=== PATIENT | male | born 1945 | race Caucasian/White ===

== ENCOUNTER 2017-09-09 17:51 | Emergency (ER) | payer MEDICARE, OTHER ==
[~2017-09-09] VITALS: Ht 185.4 cm; Wt 99.8 kg
[2017-09-09] MEDS ORDERED: ACETAMINOPHEN 325 MG TAB PO ONE (18:45)
[2017-09-09 19:05] LABS: Basophils # (auto) 0 uL; Basophils % (auto) 0.4 % (0.0-2.0); Eosinophils # (auto) 0 uL; Eosinophils % (auto) 0.1 % (0.0-7.0); Hemoglobin 15.4 g/dL (13.5-17.5); Lymphocytes # (auto) 0.3 uL; Lymphocytes % (auto) 4.8 % (10.0-50.0); Mean Corpuscular Hemoglobin 33.9 pg (28.0-32.0); Mean Corpuscular Volume 96.7 fL (80.0-100.0); Mean Platelet Volume 8.2 fL (6.9-10.8); Monocytes # (auto) 0.6 uL; Monocytes % (auto) 8.7 % (0.0-12.0); Neutrophils # (auto) 5.6 uL; Platelet Count (auto) 136 10^3/uL (140-450); Red Cell Distribution Width 13.7 % (11.8-14.3); White Blood Cell 6.5 10^3/uL (4.4-10.8)
[2017-09-09 19:19] LABS: Albumin 3.9 g/dL (3.4-5.0); BUN/Creatinine Ratio 13.8; Calcium 8.1 mg/dL (8.5-10.1)
[2017-09-09 19:22] LABS: Bilirubin, Total 0.6 mg/dL (0.2-1.0); Total Protein 7.3 g/dL (6.4-8.2)
[2017-09-10] MEDS ORDERED: SODIUM CHLORIDE 0.9% 500 ML IV ONE (08:26)
[2017-09-10] MEDS ORDERED: traMADol HCL 50 MG TAB PO ONE (10:15)
[2017-09-10] MEDS ORDERED: THROAT LOZENGES(CEPASTAT) MT ONE (10:15)
[2017-09-10 11:17] LABS: Urine Bilirubin Negative (Negative); Urine Blood Negative /uL (Negative); Urine Color Yellow (Yellow); Urine Glucose Normal (Normal); Urine Ketone 1+ (Negative); Urine Mucus FEW (None Seen); Urine Nitrite Negative (Negative); Urine RBC <1 /hpf (0 - 3); Urine Squamous Epithelial Cell FEW /hpf (<5); Urine Urobilinogen Normal (Negative); Urine pH 5.5 (5.0-8.0)
[2017-09-10 12:16] VITALS: BP 148/63
== END 2017-09-10 12:18 | disposition home or self-care (01) ==
LOC: ER 17:51
DX: J20.9 Acute bronchitis, unspecified (principal)
CPT/HCPCS: 36415; 71010; 80053; 81001; 85025; 94761; 96360; 96361; 99285; J7040; 93005

== ENCOUNTER 2019-07-13 07:55 | Emergency (ER) | payer MEDICARE ==
[~2019-07-13] VITALS: Ht 185.4 cm; Wt 79.4 kg
[~2019-07-13 07:55] MED LIST: CHOL100046 PO; CLONPOW23 PO; CYAN100056 PO; POLYDRO3 EACHEYE; TAMS1CAP25 PO; TRAZ-181 PO
[2019-07-13 08:26] VITALS: BP 114/81
== END 2019-07-13 09:32 | disposition home or self-care (01) ==
LOC: ER 07:55
DX: T83.021A Displacement of indwelling urethral catheter, initial encounter (principal); N40.0 Benign prostatic hyperplasia without lower urinary tract symptoms; Z79.899 Other long term (current) drug therapy
CPT/HCPCS: 51702

== ENCOUNTER 2023-10-20 10:30 | Emergency (ER) | payer MEDICARE ==
[~2023-10-20] VITALS: Ht 180.3 cm; Wt 86.3 kg
[2023-10-20] MEDS ORDERED: LIDOCAINE 1% HCL (LOCAL ANESTH.) INJ 20ML MDV ONE (11:11)
[2023-10-20] MEDS ORDERED: LIDOCAINE 1% HCL (LOCAL ANESTH.) INJ 20ML MDV IJ ONE (11:15)
[2023-10-20] MEDS ORDERED: TETANUS-DIPTH-ACEL PERTUSSIS 0.5ML SYR Tdap IM ONE (11:30)
[2023-10-20] MEDS ORDERED: CEPH500C PO (11:31)
[2023-10-20 11:45] VITALS: BP 138/90; PULSE 22; RESP 22; TEMP 98.9; O2SAT 95
== END 2023-10-20 12:30 | disposition home or self-care (01) ==
LOC: EDBD 10:30 → ER 10:30
DX: S51.811A Laceration without foreign body of right forearm, initial encounter (principal); I10 Essential (primary) hypertension; Z90.89 Acquired absence of other organs; Z79.899 Other long term (current) drug therapy; W18.39XA Other fall on same level, initial encounter; Y93.89 Activity, other specified; Y92.89 Other specified places as the place of occurrence of the external cause; Y99.8 Other external cause status
CPT/HCPCS: 12004; 90471; 90715; 99283; J2001

== ENCOUNTER 2023-10-21 12:29 | Emergency (ER) | payer MEDICARE ==
[~2023-10-21] VITALS: Ht 182.9 cm; Wt 86.9 kg
[~2023-10-21 12:29] MED LIST changes: +CEPH500C PO
[2023-10-21 15:00] VITALS: BP 107/67; PULSE 81; RESP 16; TEMP 98.6; O2SAT 96
== END 2023-10-21 15:33 | disposition home or self-care (01) ==
LOC: ER 12:29
DX: S51.811D Laceration without foreign body of right forearm, subsequent encounter (principal); I10 Essential (primary) hypertension; Z48.00 Encounter for change or removal of nonsurgical wound dressing; Z98.890 Other specified postprocedural states; Z79.899 Other long term (current) drug therapy; X58.XXXD Exposure to other specified factors, subsequent encounter

== ENCOUNTER 2023-11-01 10:59 | Emergency (ER) | payer MEDICARE ==
[~2023-11-01] VITALS: Ht 180.3 cm; Wt 87.5 kg
[2023-11-01 11:55] VITALS: BP 113/73; PULSE 73; RESP 18; TEMP 98.1; O2SAT 95
[2023-11-01] MEDS ORDERED: NEOM-48 EX (12:44)
== END 2023-11-01 12:50 | disposition home or self-care (01) ==
LOC: ER 10:59
DX: S51.811D Laceration without foreign body of right forearm, subsequent encounter (principal); I10 Essential (primary) hypertension; Z48.00 Encounter for change or removal of nonsurgical wound dressing; Z98.890 Other specified postprocedural states; Z79.899 Other long term (current) drug therapy; X58.XXXD Exposure to other specified factors, subsequent encounter

== ENCOUNTER 2023-11-21 09:56 | Emergency (ER) | payer MEDICARE ==
[~2023-11-21] VITALS: Ht 180.3 cm; Wt 88.2 kg
[~2023-11-21 09:56] MED LIST changes: +NEOM-48 EX
[2023-11-21] MEDS ORDERED: CEPH500C PO (12:07)
[2023-11-21 13:02] VITALS: BP 130/79; PULSE 70; RESP 18; TEMP 97.9; O2SAT 98
== END 2023-11-21 13:05 | disposition home or self-care (01) ==
LOC: ER 09:56
DX: M79.631 Pain in right forearm (principal); I10 Essential (primary) hypertension; Z90.89 Acquired absence of other organs; Z79.899 Other long term (current) drug therapy